=== PATIENT | male | born 2000 | race Caucasian/White ===

== ENCOUNTER 2022-08-12 22:33 | Emergency (ER) | payer MEDICAID, SELFPAY ==
[2022-08-12 22:52] VITALS: BP 136/88; PULSE 91; RESP 18; TEMP 36.6; O2SAT 98; BMI 29.1
[2022-08-12 22:58] LABS: Basophils % 0.3 %; Eosinophils # 0.1 10^3/uL (0.0-0.8); Eosinophils % 0.9 %; Hematocrit 42.7 % (42.0-52.0); Hemoglobin 14.1 g/dL (11.7-16.6); Lymphocytes # 3.8 10^3/uL (0.8-4.8); Lymphocytes % 32.9 %; Mean Corpuscular Hemoglobin 29.6 pg (28.0-34.0); Mean Corpuscular Volume 89.7 fl (80-94); Mean Platelet Volume 10.9 fL (7.4-10.4); Monocytes # 0.6 10^3/uL (0.2-0.9); Monocytes % 5.5 %; Neutrophils # 6.96 10^3/uL (1.8-7.7); Neutrophils % 60.2 %; Nucleated Red Blood Cells % 0 %; Platelet Count 381 10^3/cmm (130-400); Red Blood Count 4.76 10^6/uL (4.1-5.3); Red Cell Distribution Width 12.9 % (12.1-15.1); White Blood Count 11.6 10^3/uL (4.0-10.0)
--- NOTE | 2022-08-12 22:58 | ED.C_ITS ---
HPI - Psych General: Chief Complaint: Psychiatric Symptoms Stated Complaint: SI Time Seen by Provider: 08/12/22 22:35 Source: patient Mode of arrival: ambulatory Limitations: no limitations History of Present Illness: 22-year-old male has a long history of depression. Associated symptoms: Reports depression and suicidal ideation Review of Systems Const: Denies: fever(s), chills, body aches or change in appetite Eyes: Denies: blurry vision or eye discomfort ENMT: Denies: throat pain or dental pain Card: Denies: chest pain Resp: Denies: dyspnea GI: Denies: abdominal pain, nausea, vomiting or diarrhea : Denies: dysuria Musc: Denies: neck pain or back pain Skin/Breast: Denies: rash Neuro: Denies: headache(s) Psych: Reports: depression and suicidal ideation Yo/Lymph: Denies: easy bruising All/Imm: Denies: urticaria PFSH ED PFSH: Medical History (Updated 08/13/22 @ 05:14 by Malcom Mann MD) Depression Social History (Updated 08/12/22 @ 23:00 by Malcom Mann MD) Substance/Drug Use: unknown Physical Exam Const: COMMON NORMALS: no acute distress, patient oriented x3 and healthy appearing HENMT: COMMON NORMALS: normocephalic and atraumatic HEAD & SCALP: normocephalic and atraumatic Eye: COMMON NORMALS: Equal, round and reactive pupils present and EOMs intact bilaterally PUPIL: Yes Equal, round and reactive pupils present Neck/C-Spine: COMMON NORMALS: full ROM and supple Chest: COMMONS NORMALS: normal inspection of the chest and normal palpation of entire chest wall Resp: COMMON NORMALS: normal respiratory effort, No retractions, No use of accessory muscles and clear to auscultation bilaterally AUSCULTATION: clear to auscultation bilaterally Cardio: COMMON NORMALS: regular rate, regular rhythm and No murmurs present (Cardio) RATE: regular rate RHYTHM: regular rhythm GI: COMMON NORMALS: Normal to inspection, nondistended, normoactive bowel sounds present, Soft to palpation, non-tender and no masses PALPATION: Yes Soft to palpation Extremity: COMMON NORMALS: normal to inspection and full ROM Neuro: COMMON NORMALS: patient oriented x3, moves all extremities and no focal motor deficits Psych: COMMON NORMALS: mental status grossly normal, Normal thought process present and cooperative THOUGHT PROCESS: Normal thought process present Skin: COMMON NORMALS: no rashes or lesions noted and no wounds GENERAL SKIN EXAM: no rashes or lesions noted Course Vital Signs: Vital signs: Vital Signs Temperature 97.9 F 08/12/22 22:52 Pulse Rate 91 08/12/22 22:52 Respiratory Rate 18 08/12/22 22:52 Blood Pressure 136/88 08/12/22 22:52 Pulse Oximetry 98 08/12/22 22:59 Oxygen Delivery Me thod 08/12/22 22:59 [facility] - Psych Medical Decision Making Patient presents here complaining and depression he states he has chronic suicidal thoughts for he states all his life he has no active plan he just got discharged from [facility] this morning. He states he is homeless and has nowhere to go patient was seen by psychiatrist Dr. Colin who does not feel that he requires admission he did talk to him about homeless shelters and patient states that he is too good for homeless shelters we will get him information for the crisis center at this time I do not believe he is a threat to harm himself or others we will discharge him at this time. When I first spoke to patient he was demanding Klonopin and he told me that those were the reasons why he had to leave [facility] because he kept demanding benzos at the psych facility. I spoke to Dr. Colin who conveyed the same thing to me. Patient was angry when he was discharged she states he needs to stay because he needs as needed benzo meds. He was given options for homeless shelters and he stated he was too good to go there. He is malingering I do not believe that he requires inpatient admission at this time and was discharged Lab Data 08/12/22 22:51 08/12/22 22:51 Laboratory Results WBC 11.6 10^3/uL (4.0-10.0) H 08/12/22 22:51 RBC 4.76 10^6/uL (4.1-5.3) 08/12/22 22:51 Hgb 14.1 g/dL (11.7-16.6) 08/12/22 22:51 Hct 42.7 % (42.0-52.0) 08/12/22 22:51 MCV 89.7 fl (80-94) 08/12/22 22:51 MCH 29.6 pg (28.0-34.0) 08/12/22 22:51 MCHC 33.0 g/dL (30.0-36.0) 08/12/22 22:51 RDW 12.9 % (12.1-15.1) 08/12/22 22:51 Plt Count 381 10^3/cmm (130-400) 08/12/22 22:51 MPV 10.9 fL (7.4-10.4) H 08/12/22 22:51 Neut % (Auto) 60.2 % 08/12/22 22:51 Lymph % (Auto) 32.9 % 08/12/22 22:51 Dixon % (Auto) 5.5 % 08/12/22 22:51 Eos % (Auto) 0.9 % 08/12/22 22:51 Baso % (Auto) 0.3 % 08/12/22 22:51 Neut # (Auto) 6.96 10^3/uL (1.8-7.7) 08/12/22 22:51 Lymph # (Auto) 3.8 10^3/uL (0.8-4.8) 08/12/22 22:51 Dixon # (Auto) 0.6 10^3/uL (0.2-0.9) 08/12/22 22:51 Eos # (Auto) 0.1 10^3/uL (0.0-0.8) 08/12/22 22:51 Baso # (Auto) 0.0 10^3/uL (0.0-0.1) 08/12/22 22:51 Nucleated RBC % (auto) 0 % 08/12/22 22:51 Nucleated RBCs # 0.0 /100WBC 08/12/22 22:51 Sodium 141 mmol/L (136-145) 08/12/22 22:51 Potassium 4.2 mmol/L (3.5-5.1) 08/12/22 22:51 Chloride 104 mmol/L (98-107) 08/12/22 22:51 Carbon Dioxide 25 mmol/L (22-29) 08/12/22 22:51 Anion Gap 16.2 (5-19) 08/12/22 22:51 BUN 20 mg/dL (6-20) 08/12/22 22:51 Creatinine 0.8 mg/dL (0.7-1.2) 08/12/22 22:51 GFR Calculation 120.9 mL/min (90-130) 08/12/22 22:51 Glucose 110 mg/dL (65-115) 08/12/22 22:51 Calculated Osmolality 295 mOsm/kg (285-295) 08/12/22 22:51 Calcium 9.4 mg/dL (8.5-10.5) 08/12/22 22:51 Total Bilirubin 0.4 mg/dL (0.15-1.2) 08/12/22 22:51 AST 23 U/L (0-40) 08/12/22 22:51 ALT 27 U/L (0-41) 08/12/22 22:51 Alkaline Phosphatase 68 U/L (40-130) 08/12/22 22:51 Total Protein 8.2 g/dL (6.6-8.7) 08/12/22 22:51 Albumin 4.4 g/dL (3.5-5.2) 08/12/22 22:51 Globulin 3.8 g/dL (1.3-4.6) 08/12/22 22:51 Salicylates < 0.3 mg/dL (3-10) L 08/12/22 22:51 Urine Opiates Screen Negative ng/mL (Negative) 08/12/22 23:25 Acetaminophen < 5.0 ug/mL (10-30) L 08/12/22 22:51 Ur Barbiturates Screen Negative ng/mL (Negative) 08/12/22 23:25 Ur Phencyclidine Scrn Negative ng/mL (Negative) 08/12/22 23:25 Ur Amphetamines Screen Negative ng/mL (Negative) 08/12/22 23:25 U Benzodiazepines Scrn Positive ng/mL (Negative) H 08/12/22 23:25 Urine Cocaine Screen Negative ng/mL (Negative) 08/12/22 23:25 U Marijuana (THC) Screen Positive ng/mL (Negative) H 08/12/22 23:25 Ethyl Alcohol < 10 mg/dL (0-10) 08/12/22 22:51 Discharge Plan Discharge Patient Disposition: Home Clinical Impression: Depression, Homeless Discharge Orders: Discharge ED (Routine); Ordered 08/13/22 Ordered By: Malcom Mann Discharge Diet: Advance as tolerated Discharge Activity: Resume usual activity Patient Instructions: Depression (ED) Coding Level of Care Code ED Paper Cup Machine Tender for Monica Doyle
[2022-08-12 22:59] VITALS: O2SAT 98
[2022-08-12 23:17] LABS: Alanine Aminotransferase 27 U/L (0-41); Albumin Level 4.4 g/dL (3.5-5.2); Alkaline Phosphatase 68 U/L (40-130); Anion Gap 16.2 (5-19); Aspartate Amino Transferase 23 U/L (0-40); Blood Urea Nitrogen 20 mg/dL (6-20); Calcium 9.4 mg/dL (8.5-10.5); Carbon Dioxide 25 mmol/L (22-29); Chloride 104 mmol/L (98-107); Globulin 3.8 g/dL (1.3-4.6); Glomerular Filtration Rate 120.9 mL/min (90-130); Glucose 110 mg/dL (65-115); Osmolality Calculated 295 mOsm/kg (285-295); Potassium 4.2 mmol/L (3.5-5.1); Sodium 141 mmol/L (136-145); Total Bilirubin 0.4 mg/dL (0.15-1.2); Total Protein 8.2 g/dL (6.6-8.7)
[2022-08-12 23:32] LABS: Acetaminophen < 5.0 ug/mL (10-30); Alcohol Level < 10 mg/dL (0-10); Salicylate < 0.3 mg/dL (3-10)
[2022-08-13] LABS: Amphetamines Screen Urine Negative (Negative); Barbiturates Screen Urine Negative (Negative); Benzodiazepines Screen Urine Positive (Negative); Cocaine Screen Urine Negative (Negative); Opiate Screen Urine Negative (Negative); PCP Screen Urine Negative (Negative); THC Screen Urine Positive (Negative)
[2022-08-13] MEDS: ziprasidone 20 mg/mL SDV IM (00:26)
[2022-08-13] MEDS: LORazepam 2 mg/mL INJ 1 mL IM (00:26)
--- NOTE | 2022-08-13 00:26 | PC.NURSE ---
0015 - Patient becoming agitated and stating he wants to harm himself. Scratched himself and hit himself in face. Redness noted to face. Dr. Mann notified and meds ordered. Patient did not have any obvious injuries noted other than the scratches to the face.
--- NOTE | 2022-08-13 05:20 | PC.NURSE ---
to room to dc pt. pt questioning why he is being discharged. I explained to pt that he had been evaluated by the ER physician and the psychiatrist and their plan of care was to have him follow up at the crisis center this morning. pt became agitated and slapped the paperwork out of my hands. at this point, I left the room and requested security to help escort the pt to the waiting room. powerhouse mechanic helper to nurses station to help escort. explained again that the pt had been evaluated and that he needed to follow up at the crisis center this morning. the pt continued to get agitated and began using coarse language and aggressive movements toward staff. once out in waiting room, a phone was supplied so pt could contact his trimming caser. the trimming caser spoke with the powerhouse mechanic helper to go over the plan of care and after speaking with him, the pt was allowed to wait in the waiting room until the crisis center opened so long as he did not become aggressive or bother any other patients.
--- NOTE | 2022-08-17 13:11 | DCPLANNER ---
customer service manager called patient due to no primary care physician - patient does not live in the area
== END 2022-08-13 05:59 | disposition home or self-care (01) ==
PROVIDERS: Emergency Provider Emergency Medicine
DX: F32.A Depression, unspecified (principal); Z59.00 Homelessness unspecified
CPT/HCPCS: 80053; 80306; 80307; 85025; 96372; 99284; J2060; J3486